=== PATIENT | male | born 1990 | race Caucasian/White ===

== ENCOUNTER → 2016-12-20 | Day surgery (SDC) | payer OTHER ==
[2016-11-25 13:21] VITALS: Ht 180.3 cm; Wt 72.7 kg
[~2016-12-20] VITALS: Ht 180.3 cm; Wt 72.7 kg
[~2016-12-20] MED LIST: AZEL0.056 NAE; SERT50TA PO; VNTHFA/IN INH
== END | disposition home or self-care (01) ==
LOC: EDSTATUS 12:00 → C.PAT 13:46
PROVIDERS: ATTEND Surgery
DX: K42.9 Umbilical hernia without obstruction or gangrene (principal)